=== PATIENT | male | born 1975 | race Caucasian/White ===

== ENCOUNTER 2020-08-15 20:49 | Emergency (ER) | payer OTHER ==
[2020-08-15] MEDS ORDERED: Bacitracin Oint 1 GM U/D Packet TOP ONE (21:07)
[2020-08-15 21:52] VITALS: BP 120/85; PULSE 68
[2020-08-15] MEDS ORDERED: HYDROmorphone 1 MG/ML Syringe IM ONE (22:08)
[2020-08-15] MEDS ORDERED: Diphtheria,Pertussis(Acell),Tetanus Vaccine 0.5 ML Syringe IM ONE (22:11)
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
== END 2020-08-16 00:19 | disposition home or self-care (01) ==
LOC: JP.ED 20:49
DX: S63.501A Unspecified sprain of right wrist, initial encounter (principal); S01.411A Laceration without foreign body of right cheek and temporomandibular area, initial encounter; S01.21XA Laceration without foreign body of nose, initial encounter; S80.212A Abrasion, left knee, initial encounter; Z23 Encounter for immunization; Z88.8 Allergy status to other drugs, medicaments and biological substances; V19.9XXA Pedal cyclist (driver) (passenger) injured in unspecified traffic accident, initial encounter
CPT/HCPCS: 12011; 70450; 70486; 73110; 90471; 90715; 96372; 99284; J1170

== ENCOUNTER 2020-11-23 18:50 | Emergency (ER) | payer OTHER ==
[2020-11-23 19:15] VITALS: BP 130/85; PULSE 83
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
== END 2020-11-23 20:35 | disposition home or self-care (01) ==
LOC: JP.ED 18:50
DX: U07.1 COVID-19 (principal); Z88.6 Allergy status to analgesic agent; Z72.0 Tobacco use
CPT/HCPCS: 99283; U0002

== ENCOUNTER 2021-04-09 05:43 | Day surgery (SDC) | payer OTHER ==
[2021-04-09 06:15] VITALS: BP 136/81; PULSE 69
[2021-04-09] MEDS ORDERED: Sodium Chloride 0.9% 1,000 ML IV SCH (06:30)
[2021-04-09 06:35] LABS: CORONAVIRUS COVID-19 NAA POSITIVE (NEGATIVE)
== END 2021-04-09 07:00 | disposition home or self-care (01) ==
LOC: JP.SDS 05:43
PROVIDERS: ATTEND Internal Medicine
DX: R13.10 Dysphagia, unspecified (principal); U07.1 COVID-19; Z53.09 Procedure and treatment not carried out because of other contraindication
CPT/HCPCS: 0241U; J7030

== ENCOUNTER 2022-03-03 17:11 | Inpatient (IN) | payer OTHER ==
[2022-03-03] MEDS ORDERED: Sodium Chloride 0.9% 1,000 ML IV STA (17:43)
[2022-03-03] MEDS ORDERED: Sodium Chloride 0.9% 10 ML Syringe FLUSH PRN (17:43)
[2022-03-03] MEDS ORDERED: fentaNYL 100 MCG/2 ML SDV IVPUSH ONE (17:45)
[2022-03-03 18:17] LABS: ESTIMATED GFR 94 mL/min (>60)
[2022-03-03] MEDS ORDERED: Iopamidol 612 MG/ML 100 ML Bottle IV SCH (18:30)
[2022-03-03] MEDS ORDERED: Sodium Chloride 0.9% 75 ML IV SCH (18:30)
[2022-03-03] MEDS ORDERED: HYDROmorphone 0.5 MG/0.5 ML Syringe IVPUSH PRN (19:47)
[2022-03-03] MEDS ORDERED: Sodium Chloride 0.9% 1,000 ML IV SCH (20:00)
[2022-03-03] MEDS ORDERED: Ciprofloxacin in D5W 400 MG in Premix Bag 1 BAG IV SCH ×2 (20:00)
[2022-03-03] MEDS ORDERED: HYDROmorphone 0.5 MG/0.5 ML Syringe IVPUSH ONE (20:06)
[2022-03-03 20:29] LABS: CORONAVIRUS COVID-19 NAA NEGATIVE (NEGATIVE)
[2022-03-03] MEDS ORDERED: HYDROmorphone 1 MG/ML Syringe IM ONE (21:27)
[2022-03-03] MEDS ORDERED: Ondansetron 4 MG/2 ML SDV IV PRN (21:47)
[2022-03-03] MEDS: metroNIDAZOLE/Normal Saline 500 MG in Premix Bag 1 BAG IV SCH (21:55)
[2022-03-03] MEDS: HYDROmorphone 1 MG/ML Syringe IV PRN ×2 (22:01→23:07)
[2022-03-03] MEDS: Nicotine 21 MG/24 Hr Patch TRDERM SCH (22:36)
[2022-03-03] MEDS: Enoxaparin 40 MG/0.4 ML Syringe SUBCUT SCH (22:37)
[2022-03-03] MEDS: Pantoprazole 40 MG Vial IV SCH (22:37)
[2022-03-03] MEDS: Acetaminophen 325 MG Tab PO PRN (22:39)
[2022-03-04] MEDS: HYDROmorphone 1 MG/ML Syringe IV PRN ×3 (02:56→07:59)
[2022-03-04] MEDS: metroNIDAZOLE/Normal Saline 500 MG in Premix Bag 1 BAG IV SCH ×3 (04:00→19:49)
[2022-03-04] MEDS: Sodium Chloride 0.9% 1,000 ML IV SCH ×2 (08:11→18:32)
[2022-03-04] MEDS: Ciprofloxacin in D5W 400 MG in Premix Bag 1 BAG IV SCH ×4 (08:11→21:14)
[2022-03-04] MEDS ORDERED: Naloxone 0.4 MG/ML SDV IVPUSH PRN (08:17)
[2022-03-04] MEDS ORDERED: Ondansetron 4 MG/2 ML SDV IVPUSH PRN (08:17)
[2022-03-04] MEDS ORDERED: diphenhydrAMINE 25 MG Cap PO PRN (08:17)
[2022-03-04] MEDS ORDERED: diphenhydrAMINE 50 MG/ML SDV IVPUSH PRN (08:17)
[2022-03-04] MEDS: HYDROmorphone/Normal Saline 6 MG/30 ML PCA Vial IV PRN ×2 (08:47→18:56)
[2022-03-04] MEDS: Nicotine 21 MG/24 Hr Patch TRDERM SCH (08:53)
[2022-03-04] MEDS: Acetaminophen 325 MG Tab PO PRN (08:59)
[2022-03-04] MEDS: oxyCODONE 5 MG Tab PO PRN ×3 (10:35→23:09)
[2022-03-04] MEDS: Nicotine Polacrilex 2 MG Gum CHEW PRN ×2 (10:55→20:09)
[2022-03-04] MEDS: Ondansetron 4 MG Tab.DIS PO PRN (16:54)
[2022-03-04] MEDS ORDERED: Nicotine Polacrilex 2 MG Gum CHEW PRN (20:13)
[2022-03-04] MEDS: Enoxaparin 40 MG/0.4 ML Syringe SUBCUT SCH (21:23)
[2022-03-04] MEDS: Pantoprazole 40 MG Vial IV SCH (21:23)
[2022-03-05] MEDS: Acetaminophen 325 MG Tab PO PRN (02:40)
[2022-03-05] MEDS: oxyCODONE 5 MG Tab PO PRN ×3 (03:18→22:01)
[2022-03-05] MEDS: metroNIDAZOLE/Normal Saline 500 MG in Premix Bag 1 BAG IV SCH ×3 (03:19→19:29)
[2022-03-05] MEDS: HYDROmorphone/Normal Saline 6 MG/30 ML PCA Vial IV PRN ×3 (03:19→23:11)
[2022-03-05] MEDS: Sodium Chloride 0.9% 1,000 ML IV SCH ×2 (03:27→12:51)
[2022-03-05 05:14] LABS: ESTIMATED GFR 107 mL/min (>60)
[2022-03-05] MEDS: Docusate Sodium 100 MG Cap PO SCH ×2 (09:18→21:53)
[2022-03-05] MEDS: Nicotine 21 MG/24 Hr Patch TRDERM SCH (09:19)
[2022-03-05] MEDS: Ciprofloxacin in D5W 400 MG in Premix Bag 1 BAG IV SCH ×4 (09:20→20:35)
[2022-03-05] MEDS: Magnesium Sulfate/Water 2 GM/50 ML BAG IV SCH ×3 (10:30→21:50)
[2022-03-05] MEDS: Ondansetron 4 MG Tab.DIS PO PRN (11:38)
[2022-03-05] MEDS ORDERED: Sodium Chloride 0.9% 1,000 ML IV SCH (13:00)
[2022-03-05] MEDS: Enoxaparin 40 MG/0.4 ML Syringe SUBCUT SCH (21:53)
[2022-03-05] MEDS: Pantoprazole 40 MG Vial IV SCH (21:53)
[2022-03-06] MEDS: oxyCODONE 5 MG Tab PO PRN (02:35)
[2022-03-06] MEDS ORDERED: Iopamidol 612 MG/ML 100 ML Bottle IV STA (02:49)
[2022-03-06] MEDS ORDERED: Sodium Chloride 0.9% 50 ML IV STA (02:49)
[2022-03-06] MEDS: metroNIDAZOLE/Normal Saline 500 MG in Premix Bag 1 BAG IV SCH (03:28)
[2022-03-06] MEDS: Magnesium Sulfate/Water 2 GM/50 ML BAG IV SCH (04:52)
[2022-03-06 05:19] LABS: ESTIMATED GFR 107 mL/min (>60)
[2022-03-06] MEDS: HYDROmorphone/Normal Saline 6 MG/30 ML PCA Vial IV PRN (07:13)
[2022-03-06 07:17] VITALS: BP 154/90; PULSE 78
[2022-03-06] MEDS ORDERED: Ciprofloxacin 500 MG Tab PO SCH (09:00)
[2022-03-06] MEDS: Docusate Sodium 100 MG Cap PO SCH (09:36)
[2022-03-06] MEDS: Nicotine 21 MG/24 Hr Patch TRDERM SCH (09:37)
[2022-03-06] MEDS ORDERED: metroNIDAZOLE 250 MG Tab PO SCH (10:00)
== END 2022-03-06 10:55 | disposition home or self-care (01) | DRG 392 ==
LOC: JP.ED 17:11 → JP.MS 20:57
PROVIDERS: ADMIT Internal Medicine; ATTEND Internal Medicine
DX: K57.20 Diverticulitis of large intestine with perforation and abscess without bleeding (principal); E78.00 Pure hypercholesterolemia, unspecified; I10 Essential (primary) hypertension; F32.A Depression, unspecified; F17.210 Nicotine dependence, cigarettes, uncomplicated; Z20.822 Contact with and (suspected) exposure to COVID-19; Z88.8 Allergy status to other drugs, medicaments and biological substances; Z86.16 Personal history of COVID-19
CPT/HCPCS: 0241U; 36415; 74177; 80048; 80053; 81001; 83605; 83690; 83735; 84100; 85025; 85027; 86140; 96361; 96365; 96375; 99222; 99231; 99238; 99285; 99285-25; A9270-GY; C9113; J0744; J1170; J1650; J3010; J3475; J3490; J7030; Q0162; Q9967

== ENCOUNTER 2022-03-14 22:54 | Emergency (ER) | payer OTHER ==
[2022-03-15] MEDS ORDERED: HYDROmorphone 0.5 MG/0.5 ML Syringe IVPUSH STA (00:01)
[2022-03-15 00:26] LABS: ESTIMATED GFR 107 mL/min (>60)
[2022-03-15 00:34] VITALS: BP 131/84; PULSE 71
== END 2022-03-15 02:40 | disposition home or self-care (01) ==
LOC: JP.ED 22:54
DX: K59.00 Constipation, unspecified (principal); I10 Essential (primary) hypertension; Z87.891 Personal history of nicotine dependence; Z88.8 Allergy status to other drugs, medicaments and biological substances
CPT/HCPCS: 36415; 74176; 80053; 81001; 83690; 85025; 86140; 96374; 99283; 99284-25; J1170

== ENCOUNTER 2023-02-09 12:56 | Emergency (ER) | payer OTHER ==
[2023-02-09] MEDS ORDERED: Sodium Chloride 0.9% 10 ML Syringe FLUSH PRN (13:42)
[2023-02-09] MEDS ORDERED: Sodium Chloride 0.9% 1,000 ML IV ONE (13:50)
[2023-02-09] MEDS ORDERED: Ondansetron 4 MG/2 ML SDV IVPUSH ONE (13:50)
[2023-02-09] MEDS ORDERED: HYDROmorphone 0.5 MG/0.5 ML Syringe IVPUSH ONE (13:50)
[2023-02-09 14:01] LABS: BASOPHILS PERCENT AUTO 0.1 % (0.1-1.3); HEMOGLOBIN 17.9 g/dL (12.9-16.9); IMMATURE GRAN ABSOLUTE AUTO 0.03 K/uL (0.00-0.23); IMMATURE GRAN PERCENT AUTO 0.4 % (0.0-0.7); LYMPHOCYTES ABSOLUTE AUTO 0.96 K/uL (0.8-3.3); LYMPHOCYTES PERCENT AUTO 12.9 % (11.4-47.7); MEAN CORPUSCULAR HGB CONC 35.8 g/dL (31.6-35.5); MEAN CORPUSCULAR VOLUME 86.7 fL (81.4-99.0); MONOCYTES ABSOLUTE AUTO 0.93 K/uL (0.20-0.90); MONOCYTES PERCENT AUTO 12.5 % (3.3-12.6); NEUTROPHILS ABSOLUTE AUTO 5.49 K/uL (1.0-7.6); NEUTROPHILS PERCENT AUTO 74.1 % (40.0-78.1); PLATELET COUNT,PLT 98 K/uL (130-375); RED BLOOD CELL COUNT 5.77 M/uL (4.14-5.76); WHITE BLOOD CELL COUNT,WBC 7.4 K/uL (3.2-11.0)
[2023-02-09 14:02] LABS: BASOPHILS ABSOLUTE AUTO 0.01 K/uL (0.00-0.10)
[2023-02-09 14:26] LABS: ALANINE AMINOTRANSFERASE,ALT 33 U/L (12-78); ALBUMIN 3.6 g/dL (3.4-5.0); ALKALINE PHOSPHATASE 92 U/L (46-116); ASPARTATE AMNIOTRANSFERASE,AST 31 U/L (15-37); BILIRUBIN TOTAL 0.7 mg/dL (0.2-1.0); BLOOD UREA NITROGEN,BUN 15 mg/dL (7-18); C-REACTIVE PROTEIN 15.01 mg/dL (<0.50); CALCIUM 8.4 mg/dL (8.5-10.1); CARBON DIOXIDE,CO2 28 mmol/L (21-32); CHLORIDE,CL 95 mmol/L (100-108); CREATININE 1.1 mg/dL (0.8-1.3); EST CRCL DRUG DOSING (CG) 93.82 mL/min; ESTIMATED GFR 83 mL/min (>60); GLUCOSE RANDOM 91 mg/dL (74-106); POTASSIUM,K 4.5 mmol/L (3.6-5.2); PROTEIN TOTAL,TP 7.3 g/dL (6.4-8.2); SODIUM,NA 129 mmol/L (140-148)
[2023-02-09 14:28] LABS: ANION GAP 10.5 mmol/L (5.0-14.0)
[2023-02-09 14:29] LABS: LACTIC ACID 2.1 mmol/L (0.4-2.0)
[2023-02-09 14:48] VITALS: BP 150/96
[2023-02-09] MEDS ORDERED: Iopamidol 612 MG/ML 100 ML Bottle IV SCH (15:00)
[2023-02-09] MEDS ORDERED: Sodium Chloride 0.9% 50 ML IV SCH (15:00)
[2023-02-09] MEDS ORDERED: Acetaminophen 500 MG Tab PO ONE (15:52)
[2023-02-09 16:11] VITALS: PULSE 83
[2023-02-09] MEDS ORDERED: oxyCODONE 5 MG Tab PO ONE (16:18)
== END 2023-02-09 17:00 | disposition home or self-care (01) ==
LOC: JP.ED 12:56
DX: K57.32 Diverticulitis of large intestine without perforation or abscess without bleeding (principal); F17.210 Nicotine dependence, cigarettes, uncomplicated; I10 Essential (primary) hypertension; Z86.16 Personal history of COVID-19; Z79.899 Other long term (current) drug therapy; Z88.8 Allergy status to other drugs, medicaments and biological substances
CPT/HCPCS: 36415; 74177; 80053; 83605; 85025; 86140; 87040; 96361; 96374; 96375; 99284; A9270; J1170; J2405; J3490; J7030; Q9967

== ENCOUNTER 2023-02-10 14:47 | Inpatient (IN) | payer OTHER ==
[2023-02-10] MEDS ORDERED: Sodium Chloride 0.9% 10 ML Syringe FLUSH PRN ×2 (15:29→17:21)
[2023-02-10 15:43] LABS: BASOPHILS PERCENT AUTO 0.2 % (0.1-1.3); EOSINOPHILS ABSOLUTE AUTO 0.04 K/uL (0.00-0.40); EOSINOPHILS PERCENT AUTO 0.7 % (0.0-5.4); HEMATOCRIT 47.4 % (38.4-49.7); HEMOGLOBIN 16.9 g/dL (12.9-16.9); IMMATURE GRAN PERCENT AUTO 0.2 % (0.0-0.7); LYMPHOCYTES ABSOLUTE AUTO 1.28 K/uL (0.8-3.3); LYMPHOCYTES PERCENT AUTO 21.8 % (11.4-47.7); MEAN CORPUSCULAR HGB CONC 35.7 g/dL (31.6-35.5); MONOCYTES ABSOLUTE AUTO 1.01 K/uL (0.20-0.90); MONOCYTES PERCENT AUTO 17.2 % (3.3-12.6); NEUTROPHILS ABSOLUTE AUTO 3.53 K/uL (1.0-7.6); NEUTROPHILS PERCENT AUTO 59.9 % (40.0-78.1); PLATELET COUNT,PLT 101 K/uL (130-375); RED BLOOD CELL COUNT 5.45 M/uL (4.14-5.76); WHITE BLOOD CELL COUNT,WBC 5.9 K/uL (3.2-11.0)
[2023-02-10 15:44] LABS: BASOPHILS ABSOLUTE AUTO 0.01 K/uL (0.00-0.10); IMMATURE GRAN ABSOLUTE AUTO 0.01 K/uL (0.00-0.23)
[2023-02-10] MEDS ORDERED: Sodium Chloride 0.9% 1,000 ML IV ONE (15:58)
[2023-02-10 16:01] LABS: ANION GAP 8.9 mmol/L (5.0-14.0); C-REACTIVE PROTEIN 16.35 mg/dL (<0.50); CALCIUM 8.5 mg/dL (8.5-10.1); CREATININE 1.1 mg/dL (0.8-1.3); EST CRCL DRUG DOSING (CG) 93.82 mL/min; POTASSIUM,K 3.9 mmol/L (3.6-5.2)
[2023-02-10 16:07] LABS: LACTIC ACID 1.3 mmol/L (0.4-2.0)
[2023-02-10 16:17] LABS: APPEARANCE,URINE CLEAR (CLEAR); BILIRUBIN,URINE NEGATIVE (NEGATIVE); COLOR,URINE YELLOW (YELLOW); GLUCOSE,URINE NEGATIVE (NEGATIVE); KETONES,URINE NEGATIVE (NEGATIVE); LEUKOCYTE ESTERASE,URINE NEGATIVE (NEGATIVE); NITRITE,URINE NEGATIVE (NEGATIVE); OCCULT BLOOD,URINE MODERATE (NEGATIVE); PROTEIN,URINE 30 mg/dL (NEGATIVE)
[2023-02-10] MEDS ORDERED: HYDROmorphone 0.5 MG/0.5 ML Syringe IVPUSH ONE (16:20)
[2023-02-10 16:25] LABS: AMORPHOUS SEDIMENT,URINE NOT SEEN; BACTERIA,URINE RARE; EPITHELIAL CELLS,URINE RARE; MUCUS,URINE RARE; RBC,URINE 0-5 (0-5); WBC,URINE 20-30 (0-5)
[2023-02-10 16:51] LABS: CORONAVIRUS COVID-19 NAA NEGATIVE (NEGATIVE); INFLUENZA A NAA POSITIVE (NEGATIVE); INFLUENZA B NAA NEGATIVE (NEGATIVE); RESPIRATORY SYNCYTIAL VIR NAA NEGATIVE (NEGATIVE)
[2023-02-10] MEDS: Ampicillin/Sulbactam Na 1.5 GM in Sodium Chloride 0.9% 50 ML IV SCH ×2 (17:15→21:33)
[2023-02-10] MEDS ORDERED: Naloxone 0.4 MG/ML SDV IVPUSH PRN (17:21)
[2023-02-10] MEDS ORDERED: Polyethylene Glycol 3350 Powder 17 GM Packet PO PRN (17:21)
[2023-02-10] MEDS ORDERED: Sodium Chloride 0.9% 1,000 ML IV SCH (17:21)
[2023-02-10] MEDS ORDERED: Acetaminophen 325 MG Tab PO PRN (17:21)
[2023-02-10] MEDS: Enoxaparin 40 MG/0.4 ML Syringe SUBCUT SCH (18:11)
[2023-02-10] MEDS: oxyCODONE 5 MG Tab PO PRN ×2 (18:12→23:54)
[2023-02-10] MEDS: Oseltamivir 75 MG Cap PO SCH (18:13)
[2023-02-10] MEDS: HYDROmorphone 0.5 MG/0.5 ML Syringe IVPUSH PRN ×2 (19:35→21:33)
[2023-02-10] MEDS: traZODone 50 MG Tab PO SCH (21:33)
[2023-02-11] MEDS: oxyCODONE 5 MG Tab PO PRN ×4 (04:38→19:15)
[2023-02-11] MEDS: Ampicillin/Sulbactam Na 1.5 GM in Sodium Chloride 0.9% 50 ML IV SCH ×4 (04:39→21:42)
[2023-02-11 06:25] LABS: CALCIUM 7.7 mg/dL (8.5-10.1); EST CRCL DRUG DOSING (CG) 103.2 mL/min; MAGNESIUM 1.7 mg/dL (1.8-2.4); POTASSIUM,K 3.9 mmol/L (3.6-5.2)
[2023-02-11 06:26] LABS: ANION GAP 5.9 mmol/L (5.0-14.0); HEMATOCRIT 40.8 % (38.4-49.7); HEMOGLOBIN 14.3 g/dL (12.9-16.9); MEAN CORPUSCULAR HEMOGLOBIN 30.7 pg (31.6-35.5); MEAN CORPUSCULAR VOLUME 87.6 fL (81.4-99.0); RED BLOOD CELL COUNT 4.66 M/uL (4.14-5.76); WHITE BLOOD CELL COUNT,WBC 4.7 K/uL (3.2-11.0)
[2023-02-11] MEDS: HYDROmorphone 0.5 MG/0.5 ML Syringe IVPUSH PRN ×2 (07:49→13:24)
[2023-02-11] MEDS: DULoxetine 30 MG Cap PO SCH (09:41)
[2023-02-11] MEDS: Oseltamivir 75 MG Cap PO SCH ×2 (09:41→21:43)
[2023-02-11] MEDS: Magnesium Oxide 400 MG Tab PO SCH ×2 (09:42→21:43)
[2023-02-11] MEDS ORDERED: Magnesium Sulfate/Water 2 GM in Premix Bag 1 BAG IV SCH (10:00)
[2023-02-11] MEDS: Ondansetron 4 MG/2 ML SDV IV PRN (10:54)
[2023-02-11] MEDS ORDERED: Sodium Chloride 0.9% 1,000 ML IV SCH (14:15)
[2023-02-11] MEDS: HYDROmorphone 1 MG/ML Syringe IVPUSH PRN ×2 (16:00→21:43)
[2023-02-11] MEDS: Enoxaparin 40 MG/0.4 ML Syringe SUBCUT SCH (17:14)
[2023-02-11] MEDS ORDERED: Sennosides 8.6 MG Tab PO PRN (20:21)
[2023-02-11] MEDS: traZODone 50 MG Tab PO SCH (21:43)
[2023-02-12] MEDS: Ampicillin/Sulbactam Na 1.5 GM in Sodium Chloride 0.9% 50 ML IV SCH ×2 (03:49→09:11)
[2023-02-12] MEDS: Ondansetron 4 MG/2 ML SDV IV PRN (04:24)
[2023-02-12] MEDS: oxyCODONE 5 MG Tab PO PRN (04:28)
[2023-02-12 04:29] VITALS: BP 140/93; PULSE 64
[2023-02-12 04:58] LABS: HEMATOCRIT 47.8 % (38.4-49.7); HEMOGLOBIN 16.8 g/dL (12.9-16.9); MEAN CORPUSCULAR HEMOGLOBIN 30.9 pg (31.6-35.5); MEAN CORPUSCULAR HGB CONC 35.1 g/dL (31.6-35.5); MEAN CORPUSCULAR VOLUME 87.9 fL (81.4-99.0); RED BLOOD CELL COUNT 5.44 M/uL (4.14-5.76); WHITE BLOOD CELL COUNT,WBC 4.7 K/uL (3.2-11.0)
[2023-02-12 05:14] LABS: ANION GAP 9.4 mmol/L (5.0-14.0); CALCIUM 8.1 mg/dL (8.5-10.1); CREATININE 0.9 mg/dL (0.8-1.3); EST CRCL DRUG DOSING (CG) 114.67 mL/min; POTASSIUM,K 4.4 mmol/L (3.6-5.2)
[2023-02-12] MEDS: DULoxetine 30 MG Cap PO SCH ×2 (09:08→13:49)
[2023-02-12] MEDS: Magnesium Oxide 400 MG Tab PO SCH ×2 (09:08→13:49)
[2023-02-12] MEDS: Oseltamivir 75 MG Cap PO SCH ×2 (09:09→13:50)
== END 2023-02-12 11:55 | disposition home or self-care (01) | DRG 194 ==
LOC: JP.ED 14:47 → JP.2SS 16:25
PROVIDERS: ADMIT Hospitalist; ATTEND Hospitalist
DX: J10.1 Influenza due to other identified influenza virus with other respiratory manifestations (principal); K57.80 Diverticulitis of intestine, part unspecified, with perforation and abscess without bleeding; E78.00 Pure hypercholesterolemia, unspecified; I10 Essential (primary) hypertension; F17.210 Nicotine dependence, cigarettes, uncomplicated; F32.A Depression, unspecified; Z98.890 Other specified postprocedural states; Z91.011 Allergy to milk products; Z91.010 Allergy to peanuts; Z88.8 Allergy status to other drugs, medicaments and biological substances; Z79.899 Other long term (current) drug therapy; Z86.718 Personal history of other venous thrombosis and embolism; Z11.52 Encounter for screening for COVID-19
CPT/HCPCS: 0241U; 36415; 80048; 81001; 83605; 83735; 85025; 85027; 86140; 99284; A9270-GY; J0295; J1170; J1650; J2405; J3475; J3490; J7030